=== PATIENT | male | born 1980 | race African-American/Black ===

== ENCOUNTER 2017-04-24 12:57 | Inpatient (IN) | payer OTHER, MEDICAID ==
[2017-04-24] VITALS (13 sets, daily range): BP systolic 97–180; BP diastolic 51–101; PULSE 58–92; RESP 16–18; TEMP 98.2–98.6; O2SAT 95–98
[~2017-04-24] VITALS: Ht 180.3 cm; Wt 162.0 kg
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
[2017-04-24] MEDS ORDERED: MORPHINE SULFATE 4 MG/ML INJ IV PUSH ONE (15:30)
[2017-04-24] MEDS ORDERED: SODIUM CHLOR 0.9% 1000 ML INJ 1,000 ML IV SCH ×3 (15:30→19:00)
[2017-04-24] MEDS ORDERED: ONDANSETRON HCL 4 MG/2 ML VIAL IV PUSH ONE (15:30)
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
[2017-04-24 15:39] LABS: BASOPHIL % 0.7 % (0.0-2.0); EOSINOPHIL # 0.1 TH/MM3 (0-0.4); EOSINOPHIL % 2.7 % (0.0-4.0); HEMATOCRIT 41.7 % (39.0-51.0); HEMO FLAGS DIFF FINAL; LYMPH % 26.8 % (9.0-44.0); LYMPHOCYTE # 1.3 TH/MM3 (1.0-4.8); MEAN CELL VOLUME 90.6 FL (80.0-100.0); MEAN CORPUSCULAR HEMOGLOBIN 31.3 PG (27.0-34.0); MEAN CORPUSCULAR HGB CONC 34.5 % (32.0-36.0); MONO % 10.6 % (0.0-8.0); NEUT % 59.2 % (16.0-70.0); PLATELET COUNT 183 TH/MM3 (150-450); RED BLOOD COUNT 4.61 MIL/MM3 (4.50-5.90); RED CELL DISTRIBUTION WIDTH 12.9 % (11.6-17.2); WHITE BLOOD COUNT 4.9 TH/MM3 (4.0-11.0)
[2017-04-24 15:46] LABS: CHLORIDE 107 MEQ/L (98-107); POTASSIUM 3.9 MEQ/L (3.5-5.1); SODIUM (NA) 141 MEQ/L (136-145)
[2017-04-24] MEDS: niCARdipine INJ 25 MG in SODIUM CHLOR 0.9% 250 ML INJ 250 ML IV SCH ×2 (15:49→16:14)
[2017-04-24 15:50] LABS: ANION GAP 6 MEQ/L (5-15); APTT (PATIENT) 25.2 SEC (24.3-30.1); BICARBONATE 28.4 MEQ/L (21.0-32.0); BLOOD UREA NITROGEN 10 MG/DL (7-18); PROTHROMBIN TIME - PATIENT 10.6 SEC (9.8-11.6)
[2017-04-24 15:53] LABS: ALT (GPT) 42 U/L (12-78); AST (GOT) 25 U/L (15-37); GLOMERULAR FILTRATION RATE 102 ML/MIN (>89)
[2017-04-24 15:55] LABS: TOTAL BILIRUBIN ADULT 0.4 MG/DL (0.2-1.0)
[2017-04-24 15:56] LABS: ALKALINE PHOSPHATASE 69 U/L (45-117)
[2017-04-24] MEDS ORDERED: ONDANSETRON HCL 4 MG/2 ML VIAL IV PRN ×2 (16:15→19:00)
[2017-04-24] MEDS ORDERED: BISACODYL 10 MG SUPP RECTAL PRN (16:15)
[2017-04-24] MEDS ORDERED: MAGNESIUM HYDROXIDE SUSP 30 ML CUP PO PRN (16:15)
[2017-04-24] MEDS ORDERED: LACTULOSE SYRUP 20 GM/30 ML CUP PO PRN (16:15)
[2017-04-24] MEDS ORDERED: RESP: ALBUTEROL 2.5 MG/3 ML NEB (PRN) INH (16:15)
[2017-04-24] MEDS ORDERED: SENNOSIDES 8.6 MG TAB PO PRN (16:15)
[2017-04-24] MEDS ORDERED: ACETAMINOPHEN/HYDROcodone 325 MG/5 MG TAB PO PRN (16:15)
[2017-04-24] MEDS ORDERED: MISCELLANEOUS NURSING INFORMATION XX SCH ×2 (16:15→19:00)
[2017-04-24] MEDS ORDERED: ACETAMINOPHEN 325 MG TAB PO PRN (16:15)
[2017-04-24] MEDS ORDERED: CHLORHEXIDINE GLUCONATE 2 % 1 PACK (2 CLOTHS) TOP PRN ×2 (16:15→19:00)
[2017-04-24] MEDS ORDERED: SODIUM CHLORIDE 0.9% FLUSH 10 ML FLUSH IV FLUSH PRN (16:15)
[2017-04-24] MEDS ORDERED: MORPHINE SULFATE 4 MG/ML INJ IV PRN (16:15)
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
[2017-04-24] MEDS ORDERED: IOHEXOL 350 MG/ML 10 ML VIAL (for RAD DIAG) IV ONE (17:14)
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
[2017-04-24] MEDS ORDERED: oxyCODONE/ACETAMINOPHEN 5 MG/325 MG TAB PO PRN ×2 (19:15)
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
[2017-04-24] MEDS: DOCUSATE SODIUM 50 MG/SENNA 8.6 MG TAB PO SCH ×2 (20:00→20:28)
[2017-04-24] MEDS: levETIRAcetam INJ 500 MG in SODIUM CHLORIDE 0.9% INJ 100 ML IV SCH (20:02)
[2017-04-24] MEDS: ACETAMINOPHEN 1000 MG/100 ML VIAL IV PRN (20:07)
[2017-04-24] MEDS: SODIUM CHLORIDE 0.9% FLUSH 10 ML FLUSH IV FLUSH SCH (20:29)
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
[2017-04-25] VITALS (9 sets, daily range): BP systolic 107–133; BP diastolic 56–67; PULSE 50–65; RESP 12–18; TEMP 97.5–98.4; O2SAT 95–98
--- NOTE | 2017-04-25 00:33 | EKG ---
Date Performed: 04/24/2017 Time Performed: 16:33:53 PTAGE: 36 years EKG: Sinus rhythm NON-SPECIFIC ST/T WAVE CHANGES NO PREVIOUS TRACING DOCTOR: Aldo Tobin Interpretating Date/Time 04/25/2017 00:31:58
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
[2017-04-25] MEDS ORDERED: CHLORHEXIDINE GLUCONATE 2 % 1 PACK (2 CLOTHS) TOP SCH ×2 (04:00)
--- NOTE | 2017-04-25 05:16 | RADRPT ---
EXAM DATE/TIME: 04/25/2017 04:10 [facility] COMPARISON: CT BRAIN W/O CONTRAST, April 24, 2017, 14:53. INDICATIONS : Follow up hemorrhage. RADIATION DOSE: 56.35 CTDIvol (mGy) MEDICAL HISTORY : None SURGICAL HISTORY : None. ENCOUNTER: Subsequent ACUITY: 2 days PAIN SCALE: 0/10 LOCATION: cranial TECHNIQUE: Multiple contiguous axial images were obtained of the head. Using automated exposure control and adj ustment of the mA and/or kV according to patient size, radiation dose was kept as low as reasonably a chievable to obtain optimal diagnostic quality images. DICOM format image data is available electro nically for review and comparison. FINDINGS: CEREBRUM: Stable 1.9 cm hyperdense hematoma in the low convexity left temporal region. No new areas of hemorrh age seen. No extra-axial fluid or blood. The ventricles are normal size. No evidence of midline sh ift. POSTERIOR FOSSA: The cerebellum and brainstem are intact. The 4th ventricle is midline. The cerebellopontine angle i s unremarkable. EXTRACRANIAL: The visualized portion of the orbits is intact. SKULL: The calvaria is intact. No evidence of skull fracture. CONCLUSION: Stable left temporal hematoma. No new findings. Narayan Oliveros MD on April 25, 2017 at 5:13 Board Certified Radiologist. This report was verified electronically.
[2017-04-25 05:27] LABS: AUTOMATED NEUTROPHIL # 1.5 TH/MM3 (1.8-7.7); BASOPHIL % 0.6 % (0.0-2.0); EOSINOPHIL # 0.2 TH/MM3 (0-0.4); EOSINOPHIL % 5.5 % (0.0-4.0); HEMO FLAGS DIFF FINAL; LYMPHOCYTE # 1.6 TH/MM3 (1.0-4.8); MEAN CELL VOLUME 92.9 FL (80.0-100.0); MEAN CORPUSCULAR HEMOGLOBIN 31.6 PG (27.0-34.0); NEUT % 38.9 % (16.0-70.0); PLATELET COUNT 170 TH/MM3 (150-450); RED CELL DISTRIBUTION WIDTH 13.5 % (11.6-17.2); WHITE BLOOD COUNT 3.8 TH/MM3 (4.0-11.0)
[2017-04-25 05:36] LABS: APTT (PATIENT) 26.4 SEC (24.3-30.1)
[2017-04-25 05:51] LABS: ALT (GPT) 39 U/L (12-78); ANION GAP 5 MEQ/L (5-15); AST (GOT) 23 U/L (15-37); BICARBONATE 28.4 MEQ/L (21.0-32.0); BLOOD UREA NITROGEN 8 MG/DL (7-18); CHLORIDE 106 MEQ/L (98-107); GLOMERULAR FILTRATION RATE 108 ML/MIN (>89); MAGNESIUM 2.2 MG/DL (1.5-2.5); POTASSIUM 3.8 MEQ/L (3.5-5.1); SODIUM (NA) 139 MEQ/L (136-145)
[2017-04-25 05:53] LABS: ALKALINE PHOSPHATASE 64 U/L (45-117); TOTAL BILIRUBIN ADULT 0.6 MG/DL (0.2-1.0)
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
[2017-04-25] MEDS: DOCUSATE SODIUM 50 MG/SENNA 8.6 MG TAB PO SCH ×3 (09:00→21:00)
[2017-04-25] MEDS: levETIRAcetam INJ 500 MG in SODIUM CHLORIDE 0.9% INJ 100 ML IV SCH ×2 (09:08→21:05)
[2017-04-25] MEDS: ACETAMINOPHEN 1000 MG/100 ML VIAL IV PRN (09:08)
[2017-04-25] MEDS: PANTOPRAZOLE SODIUM 40 MG VIAL IV SCH (09:08)
[2017-04-25] MEDS: SODIUM CHLORIDE 0.9% FLUSH 10 ML FLUSH IV FLUSH SCH ×2 (09:11→21:05)
--- NOTE | 2017-04-25 09:17 | HHI.NSPN ---
History System Review Comments Constitutional: DENIES: Diaphoretic episodes, Fatigue, Fever, Weight gain, Weight loss, Chills, Dizziness, Change in appetite, Night Sweats Endocrine: DENIES: Heat/cold intolerance, Polydipsia, Polyuria, Polyphagia Eyes: DENIES: Blurred vision, Diplopia, Eye inflammation, Eye pain, Vision loss , Photosensitivity, Double Vision Ears, nose, mouth, throat: DENIES: Tinnitus, Hearing loss, Vertigo, Nasal discharge, Oral lesions, Throat pain, Hoarseness, Ear Pain, Running Nose, Epistaxis, Sinus Pain, Toothache, Odynophagia Respiratory: DENIES: Apneas, Cough, Snoring, Wheezing, Hemoptysis, Sputum production, Shortness of breath Cardiovascular: COMPLAINS OF: Chest pain, Palpitations, Syncope, Dyspnea on Exertion, PND, Lower Extremity Edema, Orthopnea, Claudication Gastrointestinal: DENIES: Abdominal pain, Black stools, Bloody stools, Constipation, Diarrhea, Nausea, Vomiting, Difficulty Swallowing, Anorexia Genitourinary: DENIES: Sexual dysfunction, Urinary frequency, Urinary incontinence, Urgency, Hematuria, Dysuria, Nocturia, Penile Discharge, Testicular Pain, Testicular Swelling Musculoskeletal: DENIES: Joint pain, Muscle aches, Stiffness, Joint Swelling, Back pain, Neck pain Integumentary: DENIES: Abnormal pigmentation, Nail changes, Pruritus, Rash Hematologic/lymphatic: DENIES: Bruising, Lymphadenopathy Immunologic/allergic: DENIES: Eczema, Urticaria Neurologic: DENIES: Abnormal gait, Headache, Localized weakness, Paresthesias, Seizures, Speech Problems, Tremor, Poor Balance Psychiatric: DENIES: Anxiety, Confusion, Mood changes, Depression, Hallucinations, Agitation, Suicidal Ideation, Homicidal Ideation, Delusions Exam Results Vital Signs Date Time Temp Pulse Resp B/P Pulse Ox O2 Delivery O2 Flow Rate FiO2 04/25/17 08:00 97.8 53 12 115/56 95 04/25/17 07:00 Room Air 04/24/17 20:47 21 Intake and Output 04/24/17 04/24/17 04/25/17 08:00 16:00 00:00 Intake Total 1719 ml Output Total 1000 ml Balance 719 ml Physical Examination GENERAL: This is a well-nourished, well-developed patient, no apparent distress. SKIN: No abrasions, contusion, rash noted. Skin warm and dry. HEAD: Atraumatic. Normocephalic. No temporal or scalp tenderness. EYES: Sclerae are clear and nonicteric ENT: No facial edema or ecchymosis. No periorbital edema. No CSF otorrhea or rhinorrhea. No palpable facial fracture or deformity. NECK: Trachea midline. No cervical spine tenderness. CARDIOVASCULAR: Regular rate and rhythm without murmurs, gallops, or rubs. RESPIRATORY: Clear to auscultation. Breath sounds equal bilaterally. No wheezes , rales, or rhonchi. GASTROINTESTINAL: Abdomen soft, non-tender, nondistended. No hepato-splenomegaly , or palpable masses. No guarding. MUSCULOSKELETAL: Extremities without cyanosis, or edema. No joint tenderness, or edema noted. No calf tenderness. Dorsalis pedis pulses 2+ bilateral NEUROLOGICAL: Awake and alert Oriented X 3 Speech is clear Conversant and appropriate Follow simple commands well Answers questions appropriately Reasonable judgment and insight Recent and remote memory are intact No evidence of anxiety or depression Pupils are equal and reactive to accommodation. Extra-ocular movements, visual burleson to confrontation, facial sensorimotor, tongue, palate, sternocleidomastoid testing, hearing to finger rub testing, and bilateral shoulder shrug are all intact. Sensation is intact to light touch in all extremities Strength normal major flexion and extension groups all extremities Johnny's absent bilaterally No ankle clonus Plantar responses absent bilateral Fine motor movements intact upper extremities Martin Ryder [facility] Apr 25, 2017 09:17
[2017-04-25] MEDS: ARTIFICIAL TEARS OPTH SOLN 15 ML BTL EACH EYE SCH ×2 (13:00→14:25)
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
[2017-04-25] MEDS: ACETAMINOPHEN 325 MG TAB PO PRN (18:40)
[2017-04-25] MEDS ORDERED: SENN1TAB PO (21:31)
[2017-04-25] MEDS ORDERED: ACET1TAB86 PO (21:31)
[2017-04-25] MEDS ORDERED: MAGN400S PO (21:31)
[2017-04-25] MEDS ORDERED: LEVE500 PO (21:34)
[2017-04-26 00:14] VITALS: BP 131/62; PULSE 55; RESP 18; TEMP 97.7; O2SAT 97
[2017-04-26] MEDS: ACETAMINOPHEN 325 MG TAB PO PRN ×2 (06:40→11:41)
[2017-04-26] MEDS: DOCUSATE SODIUM 50 MG/SENNA 8.6 MG TAB PO SCH (07:58)
[2017-04-26] MEDS: ARTIFICIAL TEARS OPTH SOLN 15 ML BTL EACH EYE SCH ×2 (07:58→11:18)
[2017-04-26] MEDS: PANTOPRAZOLE SODIUM 40 MG VIAL IV SCH (08:06)
[2017-04-26] MEDS: levETIRAcetam INJ 500 MG in SODIUM CHLORIDE 0.9% INJ 100 ML IV SCH (08:06)
[2017-04-26] MEDS: SODIUM CHLORIDE 0.9% FLUSH 10 ML FLUSH IV FLUSH SCH (08:07)
[2017-04-26 08:34] VITALS: BP 153/74; PULSE 61; RESP 20; TEMP 97.9; O2SAT 97
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
[2017-04-26 12:29] VITALS: BP 105/55; PULSE 54; RESP 20; TEMP 96.7; O2SAT 96
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
[2017-05-18] MEDS ORDERED: HYDR-3535 PO (10:17)
== END 2017-04-26 12:48 | disposition home or self-care (01) | DRG 87 ==
LOC: PHED 12:57 → PHEDA 16:21 → N03A 17:57 → N05A 04-25 13:50
PROVIDERS: ADMIT Surgery Trauma Surgery; ATTEND Surgery Trauma Surgery
DX: S06.2X0A Diffuse traumatic brain injury without loss of consciousness, initial encounter (principal); F17.200 Nicotine dependence, unspecified, uncomplicated; H91.90 Unspecified hearing loss, unspecified ear; I51.7 Cardiomegaly; J45.909 Unspecified asthma, uncomplicated; V43.52XA Car driver injured in collision with other type car in traffic accident, initial encounter; Y92.481 Parking lot as the place of occurrence of the external cause; M54.5 Low back pain
CPT/HCPCS: 70450; 71010; 72110; 72125; 74177; 80053; 82948; 83735; 84100; 85025; 85610; 85730; 87641; 93005; 94150; 96374; 96375; C9113; J0131; J1953; J2270; J2405; J7030; J7050; Q9967

== ENCOUNTER 2017-05-16 18:42 | Emergency (ER) | payer OTHER ==
[~2017-05-16] VITALS: Ht 182.9 cm; Wt 165.0 kg
[~2017-05-16 18:42] MED LIST: ACET1TAB86 PO; LEVE500 PO; MAGN400S PO; SENN1TAB PO
[2017-05-16 18:45] VITALS: BP 158/94; PULSE 114; RESP 24; TEMP 98.6; O2SAT 99
[2017-05-16] MEDS ORDERED: MORPHINE SULFATE 8 MG/ML INJ IM ONE (20:00)
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
[2017-05-16] MEDS ORDERED: HYDR-3535 PO (21:03)
[2017-05-18] MEDS ORDERED: HYDR-3535 PO (10:17)
== END 2017-05-16 21:12 | disposition home or self-care (01) ==
LOC: NEPE 18:42
DX: S06.309D Unspecified focal traumatic brain injury with loss of consciousness of unspecified duration, subsequent encounter (principal); R11.2 Nausea with vomiting, unspecified; H53.8 Other visual disturbances; J45.909 Unspecified asthma, uncomplicated; F17.200 Nicotine dependence, unspecified, uncomplicated; V49.40XD Driver injured in collision with unspecified motor vehicles in traffic accident, subsequent encounter; Z88.6 Allergy status to analgesic agent; Z79.899 Other long term (current) drug therapy
CPT/HCPCS: 70450; 72125; 96372; 99285; J2270

== ENCOUNTER 2017-09-17 14:33 | Emergency (ER) | payer BC, OTHER ==
[~2017-09-17] VITALS: Ht 180.3 cm; Wt 163.0 kg
[~2017-09-17 14:33] MED LIST changes: -ACET1TAB86 PO; +ACET325T15 PO; +HYDR-3583; +HYDR-3583 PO; -MAGN400S PO; -SENN1TAB PO
[2017-09-17 14:42] VITALS: BP 183/106; PULSE 108; RESP 16; TEMP 99.2; O2SAT 98
[2017-09-17] MEDS ORDERED: STEROID EYE DROPS LEFT EYE (14:57)
[2017-09-17] MEDS ORDERED: PROCHLORPERAZINE INJ 10 MG/2 ML VIAL IV PUSH ONE (15:15)
[2017-09-17] MEDS ORDERED: diphenhydrAMINE HCL 50 MG/ML VIAL IV PUSH ONE (15:15)
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
[2017-09-17 16:08] VITALS: BP 198/90
== END 2017-09-17 16:09 | disposition home or self-care (01) ==
LOC: PHED 14:33
DX: G44.329 Chronic post-traumatic headache, not intractable (principal); J45.909 Unspecified asthma, uncomplicated; F17.200 Nicotine dependence, unspecified, uncomplicated
CPT/HCPCS: 96374; 96375; 99284; J0780; J1200